=== PATIENT | female | born 1990 | race Caucasian/White ===

== ENCOUNTER 2020-09-18 10:49 | Outpatient (CLI) | payer OTHER, SELFPAY ==
[2020-09-18] VITALS (13 sets, daily range): BP systolic 139–160; BP diastolic 91–100; PULSE 63–74; BMI 29.0
--- NOTE | 2020-09-18 11:20 | OBADM ---
This patient, Tamra Carmona, admitted to the OB room 115 as clinical outpatient for hypertension in . Patient/family oriented to hospital policies and general routines including ID bracelet, bed and alarms, visiting hours, pain management, procedures, bathroom and other care routines, personal items, smoking policy, room service/diet, and visiting hours. Patient/Family are encouraged to report perceived risks to care and to ask questions if they do not understand what they are told or what they should do.
[2020-09-18 11:44] LABS: Basophils Percent Auto 0.4 % (0.2-1.2); Eosinophils Absolute Auto 0.1 K/mm3 (0-0.3); Eosinophils Percent Auto 0.8 % (0-4.4); Hematocrit 38.4 % (37.0-47.0); Hemoglobin 13.2 g/dL (12.0-15.0); Immature Granulocyte Absolute 0.21 K/mm3 (0.00-0.031); Immature Granulocyte Percent A 2.5 % (0-0.5); Mean Corpuscular HGB Conc 34.4 g/dl (32-36); Mean Corpuscular Hemoglobin 32.1 pg (26-34); Mean Corpuscular Volume 93.4 fl (80-100); Monocytes Absolute Auto 0.6 K/mm3 (0.1-0.6); Monocytes Percent Auto 7.1 % (2.6-8.5); Neutrophils Absolute Auto 5.9 K/mm3 (1.3-6.7); Neutrophils Percent Auto 70.2 % (45.5-73.1); Platelet Count Result 188 k/mm3 (150-375); Red Blood Count 4.11 M/mm3 (4.2-5.4); White Blood Count 8.4 K/mm3 (4.5-10.0)
[2020-09-18 11:45] LABS: Add Urine Microscopic? NO; Appearance Urine Clear (Clear); Bilirubin Urine Negative (Negative); Blood Urine Negative (Negative); Color Urine Straw (Yellow); Glucose Urine UA Negative (Negative); Ketones Urine Negative (Negative); Leukocyte Esterase Ur Negative LEU/UL (Negative); Nitrate Urine Negative (Negative); Protein Urine Negative (Negative); Urobilinogen Urine Negative mg/dL (<2.0)
[2020-09-18 11:57] LABS: Alanine Aminotransferase 16 U/L (4-35); Albumin Level 3.9 g/dL (3.5-5.1); Alkaline Phosphatase 122 U/L (38-126); Anion Gap 5 mmol/L (8-16); Aspartate Amino Transferase 25 U/L (14-36); Bilirubin,Total 0.6 mg/dL (0.2-1.3); Blood Urea Nitrogen 9 mg/dL (7-17); Calcium 9.4 mg/dL (8.4-10.2); Carbon Dioxide 25 mmol/L (22-30); Chloride 105 mmol/L (98-107); Estimated Glomerular Filt Rate > 60; Glucose 79 mg/dL (65-105); Potassium 4.1 mmol/L (3.4-5.0); Sodium 135 mmol/L (137-145); Uric Acid 5.6 mg/dL (2.5-7.5)
[2020-09-18 12:00] LABS: Creatinine Urine 14.9 mg/dL; Total Protein Urine Random 16 mg/dL; Ur Ttl Prot Creatinine Ratio 1.07 mg/mg (0-0.20)
[2020-09-18 12:15] LABS: Specific Grav Ur 1.003 (1.001-1.035)
--- NOTE | 2020-09-18 12:25 | PC.NURSE ---
Dr. Guo returned page and informed of this pt who normally sees Dr. Parra with elevated BP's who has been on Labetalol 200 mg PO BID with last dose at 0745 today. Informed of pt's BP's and lab results. 24 hr urine was started. Discussed NST at 33 wks with two 15 beat accels that are more than 20 mins apart- MD MANNING with that. Order received to give another dose of Labetalol 200 mg PO now and continue to monitor BP's for another hour before discharging pt to home.
--- NOTE | 2020-09-18 12:27 | PC.NURSE ---
Baby gave 2nd 15 beat accel just prior to discontinuing NST.
[2020-09-18] MEDS: LABETALOL HCL 100 MG TABLET 200 MG PO (12:42)
--- NOTE | 2020-09-18 13:55 | PC.NURSE ---
Dr. Brant Ramey updated on BP's. OK to send out new prescription for Labetalol as pt doesn't have enough. Pt has an appointment with Dr. aPrra on and checks her BP's at home. Pt to call if BP>160/100. OK to discharge.
== END 2020-09-18 14:18 | disposition home or self-care (01) ==
LOC: ANHOBOP 10:52 → ANHOBPP 10:53
PROVIDERS: Obstetrics & Gynecology; Visit Provider Obstetrics & Gynecology
DX: O13.9 Gestational [pregnancy-induced] hypertension without significant proteinuria, unspecified trimester (principal); Z3A.00 Weeks of gestation of pregnancy not specified
CPT/HCPCS: 36415; 59025; 80053; 81003; 82570; 84156; 84550; 85025; 99199; A9270

== ENCOUNTER 2020-09-19 13:00 | Outpatient (CLI) | payer OTHER, SELFPAY ==
[2020-09-19 13:19] VITALS: BMI 29.0
[2020-09-19 18:09] LABS: Collection Time Urine 24 HOURS
[2020-09-19 18:11] LABS: Patient Weight 174 Lbs; Total Volume 24 Hour Urine 2800 ml
[2020-09-19 18:12] LABS: Specific Gravity Ur 1.015
[2020-09-19 18:27] LABS: Creatinine Clearance Urine 120.8 ml/min (75-125); Creatinine Urine 46.7 mg/dL; Total Protein Urine Random 21 mg/dL
[2020-09-19 19:24] LABS: Total Protein Urine 24 Hr 588 mg/24hr (28-141)
== END 2020-09-19 13:01 | disposition home or self-care (01) ==
LOC: ANHOBOP 13:02
PROVIDERS: Visit Provider Obstetrics & Gynecology
DX: O13.9 Gestational [pregnancy-induced] hypertension without significant proteinuria, unspecified trimester (principal); Z3A.00 Weeks of gestation of pregnancy not specified
CPT/HCPCS: 81050; 82575; 84156

== ENCOUNTER 2020-09-25 13:02 | Outpatient (RCR) | payer OTHER, SELFPAY ==
[2020-09-13 15:29] VITALS: BP 148/93; PULSE 67
--- NOTE | 2020-09-13 16:46 | PC.NURSE ---
Dr. Parra informed by Yoan Gold BPP 10/14 with subjectively normal amniotic fluid. BP's remain 158/107, 155/106, 154/108. MD feels pt's BP's are staying elevated due to anxiety from her being here. Order received to discharge to home with preeclampsia precautions. Pt given handouts with instructions to report any symptoms- verbalizes understanding.
--- NOTE | 2020-09-13 16:47 | PC.NURSE ---
Pt has the ability to monitor her BP's at home and will call MD if they stay elevated once she gets home.
[2020-09-24 15:35] LABS: Hematocrit 39.3 % (37.0-47.0); Hemoglobin 13.6 g/dL (12.0-15.0); Mean Corpuscular HGB Conc 34.6 g/dl (32-36); Mean Corpuscular Hemoglobin 32.5 pg (26-34); Mean Platelet Volume 12.5 fl (7.4-10.4); Platelet Count Result 161 k/mm3 (150-375); Red Blood Count 4.18 M/mm3 (4.2-5.4)
[2020-09-24 15:47] LABS: Alanine Aminotransferase 15 U/L (4-35); Albumin Level 3.8 g/dL (3.5-5.1); Alkaline Phosphatase 139 U/L (38-126); Anion Gap 7 mmol/L (8-16); Aspartate Amino Transferase 23 U/L (14-36); Bilirubin,Total 0.5 mg/dL (0.2-1.3); Blood Urea Nitrogen 9 mg/dL (7-17); Calcium 9.5 mg/dL (8.4-10.2); Carbon Dioxide 24 mmol/L (22-30); Chloride 103 mmol/L (98-107); Estimated Glomerular Filt Rate > 60; Glucose 92 mg/dL (65-110); Potassium 3.8 mmol/L (3.4-5.0); Sodium 134 mmol/L (137-145); Uric Acid 5.1 mg/dL (2.5-7.5)
[2020-09-24 16:47] VITALS: BP 155/106; PULSE 71
--- NOTE | ~2020-09-25 | US_ITS ---
EXAMINATION: US OB BPP wo non-stress DATE: 09/13/2020 16:02 INDICATION: Hypertension in . Third trimester. TECHNIQUE: Real-time pelvic ultrasound was performed. COMPARISON: None. FINDINGS: There is a single living fetus in vertex presentation. The placenta is anterior, 4.2 cm from the cer vix. heart rate is 125 beats per minute (bpm). The amniotic fluid volume is subjectively normal . Biophysical profile performed by the technologist: breathing (30 sec sustained breathing in 30 minutes): 2 out of 2 movement (3 gross body movements in 30 minutes): 2 out of 2 tone (one episode of urmvusj-hkhudpslb-kgkomiw limb movement): 2 out of 2 Amniotic fluid pocket (2 cm): 2 out of 2 Total score: 8 out of 8 IMPRESSION: 1. Single living fetus in vertex presentation. 2. Biophysical profile 8 out of 8. Reviewed, dictated and finalized at location A.
[2020-09-25 14:35] VITALS: BP 146/95; PULSE 83
== END 2020-10-04 08:52 | disposition home or self-care (01) ==
LOC: ANHOBOP 13:02
PROVIDERS: Visit Provider Obstetrics & Gynecology
DX: O16.3 Unspecified maternal hypertension, third trimester (principal); O09.293 Supervision of pregnancy with other poor reproductive or obstetric history, third trimester; Z3A.32 32 weeks gestation of pregnancy; Z3A.33 33 weeks gestation of pregnancy; Z3A.34 34 weeks gestation of pregnancy
CPT/HCPCS: 36415; 59025; 76819; 80053; 84550; 85027

== ENCOUNTER 2020-10-02 13:51 | Inpatient (IN) | payer OTHER, SELFPAY ==
[2020-10-02] VITALS (82 sets, daily range): BP systolic 125–188; BP diastolic 74–138; PULSE 69–99; RESP 16–18; TEMP 36.6–36.8; O2SAT 95–100; BMI 29.2
[2020-10-02 13:25] LABS: Basophils Percent Auto 0.4 % (0.2-1.2); Eosinophils Absolute Auto 0.1 K/mm3 (0-0.3); Eosinophils Percent Auto 0.9 % (0-4.4); Hematocrit 41.4 % (37.0-47.0); Immature Granulocyte Absolute 0.21 K/mm3 (0.00-0.031); Immature Granulocyte Percent A 2.1 % (0-0.5); Lymphocytes Absolute Auto 2.06 K/mm3 (0.9-3.2); Lymphocytes Percent Auto 20.8 % (18.3-44.2); Mean Corpuscular HGB Conc 33.8 g/dl (32-36); Mean Corpuscular Hemoglobin 31.7 pg (26-34); Mean Corpuscular Volume 93.9 fl (80-100); Mean Platelet Volume 12.1 fl (7.4-10.4); Monocytes Absolute Auto 0.6 K/mm3 (0.1-0.6); Monocytes Percent Auto 6.5 % (2.6-8.5); Neutrophils Absolute Auto 6.9 K/mm3 (1.3-6.7); Neutrophils Percent Auto 69.3 % (45.5-73.1); Platelet Count Result 177 k/mm3 (150-375); Red Blood Count 4.41 M/mm3 (4.2-5.4); Red Cell Distribution Width 12.1 % (11.5-14.5); White Blood Count 9.9 K/mm3 (4.5-10.0)
[2020-10-02 13:29] LABS: Add Urine Microscopic? YES; Appearance Urine Cloudy (Clear); Bacteria Urine Trace /hpf; Bilirubin Urine Negative (Negative); Blood Urine Negative (Negative); Color Urine Yellow (Yellow); Glucose Urine UA Negative (Negative); Ketones Urine Trace mg/dL (Negative); Leukocyte Esterase Ur 2+ LEU/UL (NEGATIVE); Mucus Urine Rare /lpf; Nitrate Urine Negative (Negative); Protein Urine 2+ mg/dL (Negative); Specific Grav Ur 1.024 (1.001-1.035); Squamous Epithelial Cell Urine Many /hpf (Few); Urobilinogen Urine Negative mg/dL (<2.0); WBC Urine 21-30 /hpf (0-3)
[2020-10-02 13:31] LABS: Creatinine Urine 205.8 mg/dL; Total Protein Urine Random 65 mg/dL; Ur Ttl Prot Creatinine Ratio 0.32 mg/mg (0-0.20)
[2020-10-02 13:33] LABS: Alanine Aminotransferase 16 U/L (4-35); Albumin Level 3.8 g/dL (3.5-5.1); Alkaline Phosphatase 153 U/L (38-126); Anion Gap 5 mmol/L (8-16); Aspartate Amino Transferase 26 U/L (14-36); Bilirubin,Total 0.6 mg/dL (0.2-1.3); Blood Urea Nitrogen 11 mg/dL (7-17); Calcium 9.6 mg/dL (8.4-10.2); Carbon Dioxide 26 mmol/L (22-30); Chloride 101 mmol/L (98-107); Estimated Glomerular Filt Rate > 60; Glucose 82 mg/dL (65-110); Potassium 4.1 mmol/L (3.4-5.0); Sodium 132 mmol/L (137-145); Uric Acid 5.7 mg/dL (2.5-7.5)
[2020-10-02] MEDS: BETAMETHASONE SOD PHOS/ACETATE 30 MG/5 ML VIAL 12 MG IM (14:16)
--- NOTE | 2020-10-02 14:37 | PM.IMHP ---
H&P: HPI History of Present Illness Date/Time: 10/02/20 14:37 Chief Complaint: GHTN with severe preeclampsia intrauterine at term Narrative: 29 yo at 35w0d who presents with GHTN with superimposed severe preeclampsia. Pt has been complicated by GHTN. Her BP have been increasing despite labetalol and procardia. She states she has had a bothersome DIXON on and off for the past week. She denies any scotoma, RUQ pain, change in LE edema. Review of Systems Cardiovascular: Cardiovascular: Denies chest pain, Denies leg edema, Denies palpitations, Denies dyspnea and Denies dyspnea on exertion Respiratory: Respiratory: Denies cough, Denies dyspnea and Denies dyspnea on exertion Gastrointestinal: Gastrointestinal: Denies abdominal pain, Denies constipation, Denies diarrhea, Denies nausea and Denies vomiting Genitourinary: Genitourinary: Denies hematuria, Denies urinary frequency, Denies dysuria, Denies pelvic pain, Denies urinary incontinence and Denies vaginal discharge Neurologic: Reports system reviewed and no additional complaints, except as documented Psychiatric: Psychiatric: Reports no additional psychiatric complaints Endocrine: Endocrine: Denies palpitations [facility] Family History Family History (Updated 09/03/17 @ 10:05 by DOCTOR UNKNOWN) Mother Hypertension Other Family history of gout Family history of malignant neoplasm Social History Social History Smoking status: Never smoker Alcohol intake: never Meds Home Medications and Allergies Home Medications Medication Instructions Recorded Confirmed Type PNV cmb#95-ferrous fumarate-FA 1 tablet PO DAILY 09/18/20 09/18/20 History [] aspirin 81 mg PO DAILY 09/18/20 09/18/20 History cetirizine [Zyrtec] 10 mg PO DAILY 09/18/20 09/18/20 History labetalol 200 mg PO Q8H #90 tablet 09/18/20 Rx nifedipine [Procardia XL] 30 mg PO DAILY #30 tablet 09/25/20 Rx Allergies Allergy/AdvReac Type Severity Reaction Status Date / Time cefaclor Allergy Unknown Verified 09/03/17 10:05 Vital Signs Vital Signs - 24 hr 10/02/20 13:15 10/02/20 13:30 10/02/20 13:45 Pulse Rate 73 72 75 Blood Pressure 172/116 H 170/113 H 160/112 H 10/02/20 14:08 10/02/20 14:15 Pulse Rate 74 79 Blood Pressure 188/117 H 182/124 H Exam Const: General: no acute distress Eyes: EOM: EOMs intact bilaterally Neck: Neck: supple Thyroid: thyroid normal Chest: Breast/axilla inspection: normal inspection of the breasts Breast/axilla palpation: normal palpation of the breasts, normal palpation of the axillae and no axillary lymphadenopathy Resp: Effort & Inspection: normal respiratory effort Auscultation: clear to auscultation bilaterally Cardio: Rate: regular rate Rhythm: regular rhythm GI: Inspection: non-distended GI Palp: No abdominal tenderness, Yes Soft to palpation, No Tenderness to palpation present (GI) and No Guarding due to palpation present (GI) Auscultation: normal bowel sounds : General: No bladder normal to palpation External Female Exam: normal external appearance Speculum Exam - Vagina: normal vaginal discharge and No vaginal bleeding Speculum Exam - Cervix: nontender Bimanual exam- vagina & uterus: No bladder normal to palpation and No Cervical tenderness present OB/external & speculum: No vaginal bleeding Skin: General skin exam: normal color and no rashes or lesions noted Neuro: Cognition (Neuro): normal cognition Speech: normal speech Extrem: General: normal to inspection Psych: Mental Status: mental status grossly normal Affect: normal affect H&P: Results Labs Labs: Short CBC 10/02/20 Range/Units 13:09 WBC 9.9 (4.5-10.0) K/mm3 Hgb 14.0 (12.0-15.0) g/dL Hct 41.4 (37.0-47.0) % Plt Count 177 (150-375) k/mm3 [facility] 10/02/20 13:09 Sodium 132 L Potassium 4.1 Chloride 101 Carbon Dioxide 26 BUN 11 Creatinine 0.70 Glucose 82 Calcium 9.6 Liver Function
[2020-10-02] MEDS: MAGNESIUM SULF 20GM/WATER500ML 500 ML 50 MG IV CONT ×2 (15:00→22:10)
[2020-10-02] MEDS: MAGNESIUM SULF 6 GM/WATER150ML 6 GM/150 ML BAG IVPB (15:01)
[2020-10-02] MEDS: LACTATED RINGERS 1,000 ML 125 ML IV CONT (15:01)
[2020-10-02] MEDS: DINOPROSTONE 10 MG VAG INSERT VAGINAL (15:52)
--- NOTE | 2020-10-02 16:30 | LDADM ---
This patient, Tamra Carmona, was admitted to Labor/Delivery/Recovery 109 on 10/02/20 at 13:51. Plans for labor, pain management and were discussed with patient. Patient/family oriented to hospital policies and general routines including ID bracelet, bed and alarms, visiting hours, pain management, procedures, bathroom and other care routines, personal items, smoking policy, room service/diet and guest tray routines, infant security routines, and visiting hours. Patient/Family are encouraged to report perceived risks to care and to ask questions if they do not understand what they are told or what they should do. See OBIX for further documentation.
[2020-10-02] MEDS: AMPICILLIN 2 GM/NS 100 ML 2 GM/100 ML BAG IVPB (17:17)
[2020-10-02] MEDS: LABETALOL HCL 100 MG TABLET 200 MG PO (19:57)
[2020-10-02] MEDS: AMPICILLIN 1 GM/NS 50 ML 1 GM/50 ML BAG IVPB (21:06)
[2020-10-02] MEDS: ACETAMINOPHEN 500 MG TABLET 1000 MG PO (22:26)
[2020-10-03] VITALS (157 sets, daily range): BP systolic 100–169; BP diastolic 66–115; PULSE 68–106; RESP 16–18; TEMP 36.3–37; O2SAT 90–100
[2020-10-03] MEDS: AMPICILLIN 1 GM/NS 50 ML 1 GM/50 ML BAG IVPB ×2 (01:07→05:08)
[2020-10-03] MEDS: BETAMETHASONE SOD PHOS/ACETATE 30 MG/5 ML VIAL 12 MG IM (02:26)
[2020-10-03] MEDS: LACTATED RINGERS 1,000 ML 125 ML IV CONT ×2 (04:55→07:09)
--- NOTE | 2020-10-03 05:29 | WPDANESEPP ---
Anes - Eval Pre Procedure Procedure: labor epidural Date/Time: 10/03/20 05:29 Surgeon: Fidel Preop Diagnosis: Abd pain with contractions Pre Op Diagnosis: elev bp Patient Data Age: 29 Gender: F Height: 1.65 m Weight: 79.54 kg Last Vital Signs Temp 97.4 F L 10/03/20 04:54 Pulse 82 10/03/20 05:15 Resp 16 10/03/20 04:54 BP 151/98 H 10/03/20 05:15 Pulse Ox 99 10/03/20 05:25 Allergies Allergy/AdvReac Type Severity Reaction Status Date / Time cefaclor Allergy Unknown Verified 09/03/17 10:05 Home Medications Medication Instructions Recorded Confirmed Type PNV cmb#95-ferrous fumarate-FA 1 tablet PO DAILY 09/18/20 09/18/20 History [] aspirin 81 mg PO DAILY 09/18/20 09/18/20 History cetirizine [Zyrtec] 10 mg PO DAILY 09/18/20 09/18/20 History labetalol 200 mg PO Q8H #90 tablet 09/18/20 Rx nifedipine [Procardia XL] 30 mg PO DAILY #30 tablet 09/25/20 Rx Laboratory Tests 10/02/20 10/02/20 10/02/20 13:09 13:09 13:09 WBC 9.9 K/mm3 K/mm3 (4.5-10.0) RBC 4.41 M/mm3 M/mm3 (4.2-5.4) Hgb 14.0 g/dL g/dL (12.0-15.0) Hct 41.4 % % (37.0-47.0) MCV 93.9 fl fl (80-100) MCH 31.7 pg pg (26-34) MCHC 33.8 g/dl g/dl (32-36) RDW 12.1 % % (11.5-14.5) Plt Count 177 k/mm3 k/mm3 (150-375) MPV 12.1 fl H fl (7.4-10.4) Immature Gran % (Auto) 2.1 % H % (0-0.5) Neut % (Auto) 69.3 % % (45.5-73.1) Lymph % (Auto) 20.8 % % (18.3-44.2) [place] % (Auto) 6.5 % % (2.6-8.5) Eos % (Auto) 0.9 % % (0-4.4) Baso % (Auto) 0.4 % % (0.2-1.2) Lymph # (Auto) 2.06 K/mm3 K/mm3 (0.9-3.2) [place] # (Auto) 0.6 K/mm3 K/mm3 (0.1-0.6) Eos # (Auto) 0.1 K/mm3 K/mm3 (0-0.3) Baso # (Auto) 0.0 K/mm3 K/mm3 (0.0-0.1) Abs Immat Gran (auto) 0.21 K/mm3 H K/mm3 (0.00-0.031) Absolute Neuts (auto) 6.9 K/mm3 H K/mm3 (1.3-6.7) Absolute Nucleated RBC 0.0 K/mm3 K/mm3 (0.0-0.012) Nucleated RBC % 0.0 % % (0.0-0.2) Sodium Potassium Chloride Carbon Dioxide Anion Gap BUN Creatinine Estim Creat Clear Calc Estimated GFR Glucose Uric Acid Calcium Total Bilirubin AST ALT Alkaline Phosphatase Total Protein Albumin Urine Color Yellow (Yellow) Urine Appearance Cloudy H (Clear) Urine pH 6.0 (5.0-9.0) Ur Specific [place] 1.024 (1.001-1.035) Urine Protein 2+ mg/dL H mg/dL (Negative) Urine Glucose (UA) Negative mg/dL mg/dL (Negative) Urine Ketones Trace mg/dL mg/dL (Negative) Ur Blood (Man) Negative (Negative) Urine Nitrate Negative (Negative) Urine Bilirubin Negative (Negative) Urine Urobilinogen Negative mg/dL mg/dL (<2.0) Ur Leukocyte Esterase 2+ OLEG/UL H OLEG/UL (NEGATIVE) Urine RBC 3-5 /hpf H /hpf (0-2) Urine WBC 21-30 /hpf H /hpf (0-3) Ur Squamous Epith Cells Many /hpf H /hpf (Few) Urine Bacteria Trace /hpf /hpf Urine Mucus Rare /lpf /lpf U Random Total Protein 65 mg/dL mg/dL Urine Creatinine 205.8 mg/dL mg/dL Protein/Creat Ratio 2 0.32 mg/mg H mg/mg (0-0.20) RPR Blood Type Antibody Screen 10/02/20 10/02/20 10/02/20 13:09 14:59 14:59 WBC RBC Hgb Hct MCV MCH MCHC RDW Plt Count MPV Immature Gran % (Auto) Neut % (Auto) Lymph % (Auto)
--- NOTE | 2020-10-03 06:09 | PM.OBPNLAB ---
Pain Control Date/time seen: 10/03/20 06:09 Pain control: tolerating well and epidural Pelvic Exam Dilation (cm): 4 Effacement (%): 80 station: -2 Amniotic membrane status: Intact Contractions Monitor mode: External Status status: Category ll Comments: occasional late deceleration, mod variability, occasional acceleration Assessment and Plan Plan: begin patient augmentation Comments: AROM for clear fluid, IUPC placed. will augment with pitocin
[2020-10-03 07:01] LABS: Rapid Plasma Reagin Non-Reactive (NonReactive)
[2020-10-03] MEDS: OXYTOCIN 30 UNITS/NS 500 ML 30 UNITS/500 ML BAG IV CONT (07:09)
[2020-10-03] MEDS: MAGNESIUM SULF 20GM/WATER500ML 500 ML 50 MG IV CONT ×2 (08:07→19:40)
[2020-10-03] MEDS: OXYTOCIN 30 UNITS/NS 500 ML 30 UNITS/500 ML BAG 125 UNITS IV CONT (09:50)
--- NOTE | 2020-10-03 09:53 | PM.OBPRVD ---
OB - Delivery Note Procedure Delivery date: 10/03/20 Procedure: Pt was noted to be complete. FHT had been having early decelerations. Patient positioned in stirrups with the bed broken, dorsal lithotomy. Her perineum was prepped and draped in the usual fashion. Pt pushed over several contractions. FHT were ntoed to decelerate down to 50-60 bpm. FHT would return to baseline after about 40 sections with each contractions. Pt was able to push to +2 station. head was noted to stay at +2 in between contractions. Pt was already receiving supplemental O2 via non-rebreather mask. FHt decelerations were not improving. Pt was then consented for forceps assisted delivery given NRFHT. FHT deceleration was noted to reach down to 30 bpm. The perineal body was normal length. Pelvis felt to be adequate. + 2 station to +3 with maternal effort. Min caput. Sagital suture palpated and found to be direct A-P plane with possibly 5 degrees leftward axis. Phantom application of blades performed prior to placing left hand into vaginal sidewall. Left blade gently inserted along my hand to ensure no vaginal lacerations - advanced along the skull with the axillary prominence in a gentle fashion. In a similar fashion, the right blade was gently placed. Blade placement was then double checked to ensure adequate placement. The forceps shank articulated well in the midline. A fingerbreadth below the suture on either side was noted. With the next contraction, gentle downward pressure was applied in sync with the contraction / pushing effort. Adequate descent was noted. There were a total of 1 pulls, and the forceps were disarticulated as the head delivered. A body cord x 1 was noted and easily reduced. The remainder of the infant was delivered atraumatically. A segment of cord taken for gases and sample collected as above. A first degree midline perineal lac was noted. The placenta delivered spontaneously and found to be intact. Routine repair of the 1nd degree laceration with 3-0 vicryl. All sponge, lap, and needle counts correct x 2. Patient taken out of lithotomy position and tolerated procedure very well. NICU present for delivery. events: Pre-Eclampsia Intrapartal events: Severe Preeclampsia and Deceleration Induction method: per cervidil protocol Delivery augmentation: rupture of membranes and pitocin Delivery monitor: internal FHT and internal uterine Route of delivery: forceps Indication for instrumentation: nonreassuring FHR tracing Episiotomy description: None Laceration Description: Perineal - 1st Degree Delivery repair: vicryl Specimen: No Quantitative Blood Loss (ml): 200 Anesthesia type: Epidural Disposition: floor Complications: No immediate complications Baby Date of : 10/03/20 Time of : 09:07 Weeks of gestation at delivery: 35 Infant gender: Male Weight (pounds): 4 Weight (ounces): 9 presentation: vertex position: Right Occiput Anterior Placenta delivery description: Spontaneous cord vessel description: Around Body x1 score one minute: 3 score five minutes: 8
[2020-10-03] MEDS: ONDANSETRON INJ 4 MG/2 ML VIAL IV PUSH (12:20)
[2020-10-03] MEDS: BENZOCAINE 20% AER SPR (*SP) 56 GM CAN 1 SPRAY TOPICAL (12:20)
[2020-10-03] MEDS: WITCH HAZEL 40 PADS 1 PAD TOPICAL (12:21)
--- NOTE | 2020-10-03 12:25 | OBPPTRN ---
Patient transferred to post room # 277 via wheelchair. Support person present. Oriented to unit, room, information board, rooming in, admission packet and security measures. Patient verbalizes understanding.
--- NOTE | 2020-10-03 14:17 | PC.NURSE ---
Consult with pt., mother reports infant breastfed for first feeding. Mother breastfed first child delivered at 37 weeks. Discussed a infant of 35 weeks may have challenges. Infants born early often have less stamina and may be sleepier, have more difficulties with latch and suck and swallow. The potential problem for infant?s having difficulties establishing are at risk for weight loss, slow weight gain, dehydration, low blood sugar, low body temperature and jaundice. Mother's may have difficulties establishing a good milk supply due to lack of adequate stimulation of supply. Infant is able to freely thrust tongue past gum ridge and flange both lips. Skin is intact on both nipples, no redness and bruising noted. Reviewed feeding cues, frequencies, duration of feedings, feeding elimination flow sheet, and signs of adequate intake. Demonstrated stimulation techniques to wake infant for feeding. Assisted with infant to breast. Reviewed positioning/alignment in cross cradle, holding breast in ?U? hold and guided asymmetrical latch on. Discussed rational for each. able to latch correctly. nursed eagerly with bursts of steady draws and occasional swallowing followed with long pausing. Suggested mother stimulate while feeding to increase stimulate, increase intake and to assist with maintaining deep latch. Reviewed signs of a correct latch, effective nursing and suck swallow ratio. Infant was able to maintain latch without discomfort to mother. Demonstrated how to adjust latch more deeply while feeding. Nipple care reviewed of lanolin after feedings, warm compresses as needed. Discussed effective vs ineffective feeding. Advised mother has long pausing effecting milk transfer. Suggested supplementing after each feeding, with 15mls by paced feeding. Parents are comfortable with feeding plan. Discussed pumping, mother would like to hold off on pumping. while on Magnesium. Instructed mother to call out for RN assistance if she is unable to latch for feeding or she has discomfort with nursing.
--- NOTE | 2020-10-03 18:12 | PC.NURSE ---
1734: Paged Dr. Parra regarding pt's high blood pressure. 1753: Paged Dr. Parra. 1805: Dr. Pond came to check on pt and stated that he is operations administrator tonight for the pt. Report given to him regarding pt's high blood pressures. Orders note. See provider communication note.
[2020-10-03] MEDS: LABETALOL HCL 100 MG TABLET 200 MG PO (18:26)
[2020-10-04] VITALS (10 sets, daily range): BP systolic 136–158; BP diastolic 93–111; PULSE 58–87; RESP 16–18; TEMP 36.3–36.9; O2SAT 98
[2020-10-04] MEDS: LACTATED RINGERS 1,000 ML 125 ML IV CONT (03:13)
[2020-10-04 05:03] LABS: Hemoglobin 13.1 g/dL (12.0-15.0)
[2020-10-04] MEDS: MAGNESIUM SULF 20GM/WATER500ML 500 ML 50 MG IV CONT (05:45)
[2020-10-04] MEDS: WITCH HAZEL 40 PADS 1 PAD TOPICAL (07:04)
[2020-10-04] MEDS: BENZOCAINE 20% AER SPR (*SP) 56 GM CAN 1 SPRAY TOPICAL (07:04)
[2020-10-04] MEDS: IBUPROFEN 600 MG TABLET PO ×2 (09:19→16:55)
[2020-10-04] MEDS: LABETALOL HCL 100 MG TABLET 200 MG PO ×3 (09:20→20:15)
[2020-10-04] MEDS: DOCUSATE SODIUM 100 MG CAPSULE PO ×2 (09:21→16:55)
[2020-10-04] MEDS: MULTIVIT/MIN/PREN/FOL AC/IRON TABLET 1 TAB PO (09:21)
--- NOTE | 2020-10-04 09:50 | PC.NURSE ---
Mother is able to independently latch infant with appropriate positioning/alignment. She denies any nipple discomfort, is feeding as required and waking to feed if needed. is currently meeting outcomes for weight, output, jaundice and feeding frequencies.
--- NOTE | 2020-10-04 12:20 | WPDANLDPN2 ---
Anes-Prog Note L&D Date/Time: 10/04/20 12:20 Comfortable throughout: labor and delivery Neuraxial method: epidural Epidural/Spinal procedure site: clean & non-tender Neuro status: Neuro function grossly intact. Cardiovascular status: normal Respiratory status: normal Airway patency: baseline Mental status: baseline Post-Op hydration status: normal Vital Signs: Last Vital Signs Temp 36.9 C 10/04/20 11:51 Pulse 65 10/04/20 11:51 Resp 16 10/04/20 11:51 BP 136/93 H 10/04/20 11:51 Pulse Ox 98 10/04/20 11:51 Pain score (VAS): 2 I/O: Intake & Output 10/03/20 10/04/20 10/04/20 23:59 07:59 15:59 Intake Total 1200 2900 Output Total 1400 3950 Balance -200 -1050 Post-procedural complaints: none Patient feedback: Patient satisfied with anesthetic care.
--- NOTE | 2020-10-04 17:27 | PM.OBPNVD ---
OB - PN: Subj Subjective Date/time seen: 10/04/20 17:27 Patient reports feels okay denies headaches, vision changes, or moderate bleeding. OB - PN: Obj Data Labs CBC & Chem 7: 10/04/20 03:16 10/02/20 13:09 Labs: Laboratory Results - last 24 hr 10/04/20 03:16 Hgb 13.1 Hct 39.0 OB - PN A/P Assessment and Plan (1) Preeclampsia: Code(s): O14.90 - Unspecified pre-eclampsia, unspecified trimester Status: Acute Assessment and Plan: continue to monitor bps s/p magnesium continue with labetalol for bp control. (2) (normal spontaneous vaginal delivery): Code(s): O80 - Encounter for full-term uncomplicated delivery Status: Acute Assessment and Plan: continue with pp care. Time Spent With Patient Time: Total time spent is greater than 50% in coordination of care (as documented) at patient's floor/unit and/or counseling patient: Exam Narrative: ff below umbilicus
[2020-10-05] VITALS (9 sets, daily range): BP systolic 139–176; BP diastolic 95–111; PULSE 51–96; RESP 16–18; TEMP 36.6–36.8; O2SAT 95–98
[2020-10-05] MEDS: LABETALOL HCL 100 MG TABLET 200 MG PO ×3 (04:17→19:05)
[2020-10-05] MEDS: MULTIVIT/MIN/PREN/FOL AC/IRON TABLET 1 TAB PO (07:07)
[2020-10-05] MEDS: NIFEdipine 30 MG TAB.ER.24 PO ×2 (10:20→21:03)
--- NOTE | 2020-10-05 10:31 | PM.OBPNVD ---
OB - PN: Subj Subjective Date/time seen: 10/05/20 10:31 Patient reports feels okay and denies any headaches or symptoms OB - PN: Obj Data Labs CBC & Chem 7: 10/04/20 03:16 10/02/20 13:09 OB - PN A/P Assessment and Plan (1) (normal spontaneous vaginal delivery): Code(s): O80 - Encounter for full-term uncomplicated delivery Status: Acute Assessment and Plan: doing well with pp care (2) Preeclampsia: Code(s): O14.90 - Unspecified pre-eclampsia, unspecified trimester Status: Acute Assessment and Plan: s/p magnesium no pre eclamptic symptoms however bps elevated restarting procardia 30 xl q day with labetalol.. if improvemwnt in bps will d/c home with repeat bp in 24-48 hours. Time Spent With Patient Time: Total time spent is greater than 50% in coordination of care (as documented) at patient's floor/unit and/or counseling patient: Exam Narrative: ff below umbilicus
[2020-10-06] VITALS (11 sets, daily range): BP systolic 129–155; BP diastolic 90–108; PULSE 69–95; RESP 16–18; TEMP 36.2–36.9; O2SAT 99
[2020-10-06] MEDS: LABETALOL HCL 100 MG TABLET 200 MG PO ×4 (02:53→20:00)
[2020-10-06] MEDS: DOCUSATE SODIUM 100 MG CAPSULE PO (07:28)
[2020-10-06] MEDS: MULTIVIT/MIN/PREN/FOL AC/IRON TABLET 1 TAB PO (07:28)
--- NOTE | 2020-10-06 08:50 | PM.OBPNVD ---
OB - PN: Subj Subjective Date/time seen: 10/06/20 08:50 Patient comments: no complaints and pain well controlled baby status: doing well and nursing well OB - PN: Obj Data Labs CBC & Chem 7: 10/04/20 03:16 10/02/20 13:09 OB - PN A/P Plan day: 2 Plan: routine care Comments: keep observing secondary to increased bp Time Spent With Patient Time: Total time spent is greater than 50% in coordination of care (as documented) at patient's floor/unit and/or counseling patient: Time with patient: 15 - 25 minutes Review of Systems Review of Systems: All systems reviewed & are unremarkable except as noted in HPI and below Exam Const: General: no acute distress Eyes: General: appearance normal, both eyes and all related structures Neck: Neck: supple and no JVD Thyroid: thyroid normal Resp: Effort & Inspection: normal respiratory effort Auscultation: clear to auscultation bilaterally Cardio: Rate: regular rate Rhythm: regular rhythm GI: Inspection: non-distended GI Palp: Yes Soft to palpation, No Tenderness to palpation present (GI) and No Guarding due to palpation present (GI) Auscultation: normal bowel sounds : General: Yes bladder normal to palpation External Female Exam: normal external appearance Speculum Exam - Vagina: normal vaginal discharge and No vaginal bleeding Speculum Exam - Cervix: nontender Bimanual exam- vagina & uterus: bladder normal to palpation and No Cervical tenderness present OB/external & speculum: No vaginal bleeding Skin: General skin exam: no rashes or lesions noted Extrem: General: normal to inspection and no edema Psych: Mental Status: mental status grossly normal Affect: normal affect
[2020-10-06] MEDS: NIFEdipine 30 MG TAB.ER.24 PO ×2 (08:56→16:52)
[2020-10-07 00:35] VITALS: BP 135/97; PULSE 71; RESP 18; TEMP 36.3
[2020-10-07 02:10] VITALS: PULSE 77
[2020-10-07] MEDS: LABETALOL HCL 100 MG TABLET 200 MG PO ×2 (02:10→08:27)
[2020-10-07 04:00] VITALS: BP 132/91; PULSE 74; RESP 16; TEMP 36.3; O2SAT 97
[2020-10-07] MEDS: MULTIVIT/MIN/PREN/FOL AC/IRON TABLET 1 TAB PO (08:25)
[2020-10-07] MEDS: IBUPROFEN 600 MG TABLET PO (08:25)
--- NOTE | 2020-10-07 08:25 | PM.DS ---
DS: Admitting Diagnosis Admitting Diagnosis 35 week IUP with chronic hypertension and superimposed -induced hypertension DS: Summary Hospital Course Hospital Course: the patient was admitted for observation at 35 weeks secondary to elevated blood pressures. Induction of labor was undertaken secondary to elevated blood pressures. She underwent spontaneous vaginal delivery. The baby appeared to be doing well at 35 weeks. Her blood pressure was fairly well controlled on 200 mg labetalol q.i.d. and Procardia XL 30 b.i.d.. She was up, ambulating, generally without complaints. Time Spent with Patient Time attestation: Total time spent providing and/or coordinating discharge services: Exam Const: General: no acute distress Eyes: General: appearance normal, both eyes and all related structures Neck: Neck: supple and no JVD Thyroid: thyroid normal Resp: Effort & Inspection: normal respiratory effort Auscultation: clear to auscultation bilaterally Cardio: Rate: regular rate Rhythm: regular rhythm GI: Inspection: non-distended GI Palp: Yes Soft to palpation, No Tenderness to palpation present (GI) and No Guarding due to palpation present (GI) Auscultation: normal bowel sounds : General: Yes bladder normal to palpation External Female Exam: normal external appearance Speculum Exam - Vagina: normal vaginal discharge and No vaginal bleeding Speculum Exam - Cervix: nontender Bimanual exam- vagina & uterus: bladder normal to palpation and No Cervical tenderness present OB/external & speculum: No vaginal bleeding Skin: General skin exam: no rashes or lesions noted Extrem: General: normal to inspection and no edema Psych: Mental Status: mental status grossly normal Affect: normal affect DS: Data Data Completed and Pending Completed studies during hospitalization: Pending at discharge 10/03/20 09:10 Surgical [PTH] Routine Discharge Plan Discharge Attending physician on discharge: Rufino Pond Discharging Clinician: Matt Mullen Patient Disposition: Home, Self-Care Activity: may shower, no straining and pelvic rest Diet: heart healthy Wound Care Instructions: follow printed instructions Discharge Instructions: Education: Mom and Baby Guide Given to: Mother Follow-Up: Call your delivering provider's office for an appointment to be seen in: 1 Week Mom and baby should come to the [facility] for the follow-up appointment. Appointment Date/Time: Friday, October 09, 2020 at 10:00 am What to expect at your follow-up visit: Blood Pressure Check Physical Assessment Call [phone] if you are unable to keep your appointment time. BREAST CARE: * Wear a snug supportive bra. * For engorgement discomfort: Breast Feeding: * Apply warm moist washcloths * Express milk as needed to relieve engorgement * Wear loose clothing * For sore nipples: * Identify correct latch-on * Apply warm moist washcloths before and after nursing * Air dry nipples after nursing * May apply Lansinoh cream to nipples EPISIOTOMY/PERINEAL CARE: * Until bleeding stops, use your clayton bottle after urinating * Change your pad frequently throughout the day * You may take sitz baths several times a day (fill your bathtub with warm water and soak for 20 minutes.) Do NOT bathe in the water * No tub baths until seen by your physician - You may shower ACTIVITY: * Rest as much as possible. * Do not exercise or lift anything heavier than your baby (such as laundry or other children.) * Avoid stairs or driving as much as possible. * Do not put anything into the vagina. No douching, tampons, or sexual activity until seen by physician. NOTIFY PHYSICIAN IF YOU HAVE ANY QUESTIONS OR IF ANY OF THE FOLLOWING SYMPTOMS OCCUR: * If your vaginal area becomes red, swollen, or more painful than what you have experienced in the
[2020-10-07] MEDS: DOCUSATE SODIUM 100 MG CAPSULE PO (08:26)
[2020-10-07 08:27] VITALS: PULSE 78
--- NOTE | 2020-10-07 08:29 | PM.OBPNVD ---
OB - PN: Subj Subjective Date/time seen: 10/07/20 08:29 Patient comments: no complaints and pain well controlled baby status: doing well OB - PN: Obj Data Labs CBC & Chem 7: 10/04/20 03:16 10/02/20 13:09 OB - PN A/P Plan day: 5 Plan: discharge home and follow up 6 weeks (48 hours) Comments: The patient is continue labetalol 200 q.i.d. and Procardia XL 30 b.i.d.. PIH precautions were reviewed in great detail Time Spent With Patient Time: Total time spent is greater than 50% in coordination of care (as documented) at patient's floor/unit and/or counseling patient: Time with patient: 15 - 25 minutes Review of Systems Review of Systems: All systems reviewed & are unremarkable except as noted in HPI and below Exam Const: General: no acute distress Eyes: General: appearance normal, both eyes and all related structures Neck: Neck: supple and no JVD Thyroid: thyroid normal Resp: Effort & Inspection: normal respiratory effort Auscultation: clear to auscultation bilaterally Cardio: Rate: regular rate Rhythm: regular rhythm GI: Inspection: non-distended GI Palp: Yes Soft to palpation, No Tenderness to palpation present (GI) and No Guarding due to palpation present (GI) Auscultation: normal bowel sounds : General: Yes bladder normal to palpation External Female Exam: normal external appearance Speculum Exam - Vagina: normal vaginal discharge and No vaginal bleeding Speculum Exam - Cervix: nontender Bimanual exam- vagina & uterus: bladder normal to palpation and No Cervical tenderness present OB/external & speculum: No vaginal bleeding Skin: General skin exam: no rashes or lesions noted Extrem: General: normal to inspection and no edema Psych: Mental Status: mental status grossly normal Affect: normal affect
[2020-10-07] MEDS: NIFEdipine 30 MG TAB.ER.24 PO (09:09)
[2020-10-07 10:30] VITALS: BP 126/91; PULSE 78; RESP 16; RESP 18; TEMP 36.5; O2SAT 97
[2020-10-09 09:39] VITALS: BP 144/98; PULSE 85; RESP 16; TEMP 37.1; O2SAT 98
== END 2020-10-07 12:31 | disposition home or self-care (01) | DRG 807 ==
LOC: ANHOBOP 14:56 → ANHOB2 10-07 07:00 → ANHLDR 10-08 13:09 → ANHOB2 10-08 13:09 → ANHOBPP 10-08 13:09
PROVIDERS: Admitting Provider Student in an Organized Health Care Education/Training Program; Visit Provider Obstetrics & Gynecology
DX: O13.4 Gestational [pregnancy-induced] hypertension without significant proteinuria, complicating childbirth (principal); Z37.0 Single live birth; O14.14 Severe pre-eclampsia complicating childbirth; O76 Abnormality in fetal heart rate and rhythm complicating labor and delivery; O69.2XX0 Labor and delivery complicated by other cord entanglement, with compression, not applicable or unspecified; O70.0 First degree perineal laceration during delivery; O99.824 Streptococcus B carrier state complicating childbirth; Z3A.35 35 weeks gestation of pregnancy
CPT/HCPCS: 36415; 80053; 81001; 82570; 84156; 84550; 85014; 85018; 85025; 86592; 86850; 86900; 86901; 88307; 96372; A9270; J0290; J0702; J2405; J2590; J2795; J3475; J7120

== ENCOUNTER 2024-06-30 11:28 | Emergency (ER) | payer BC, SELFPAY ==
--- NOTE | 2024-06-30 11:29 | ED_ITS ---
HPI - Female Genitourinary General Chief complaint: Urogenital-Female Stated complaint: Yeast Infection Time Seen by Provider: 06/30/24 11:29 Source: patient Mode of arrival: ambulatory Limitations: no limitations History of Present Illness HPI Narrative: Tamra is a 33-year-old female patient presenting to the clinic today with complaints of possible yeast infection. She reports she has been having vaginal itching with cottage cheese slightly odorous discharge x1 week. No changes in soaps, lotions, detergents, or shampoos. Denies any new sexual partners. Denies any UTI symptoms. Denies any pelvic pain other than itching/external vaginal irritation Related Data Home Medications ?Medication ?Instructions ?Recorded ?Confirmed ?Last Taken ?Type aspirin 81 mg tablet 81 mg PO DAILY 09/18/20 06/30/24 09/18/20 07:45 History cetirizine 10 mg tablet (Zyrtec) 10 mg PO DAILY 09/18/20 06/30/24 09/18/20 07:45 History losartan 50 mg tablet mg 06/30/24 Unknown History Allergies Allergy/AdvReac Type Severity Reaction Status Date / Time cefaclor Allergy Mild Hives Verified 06/30/24 11:44 Review of Systems Review of Systems: Pertinent positives per HPI. Patient denies any fever, chills, rash, headache, visual changes, dizziness, cough, runny nose, sore throat, shortness of breath, chest pain, palpitations, nausea, vomiting, diarrhea, constipation, abdominal pain, or any urinary issues. PMFSH Past Medical History Medical History and not yet delivered Preeclampsia Family History Family History Mother Hypertension Other Family history of gout Family history of malignant neoplasm Social History Social History Smoking status: Never smoker Second hand tobacco smoke exposure: No Alcohol intake: never Spiritual care concerns: No Comments At the time of my signature, I reviewed and agree with the nursing past medical, surgical, social, and family history. There is no relevant family history pertinent to the patient complaint. Exam Narrative: General: Well-developed, well nourished, in no apparent distress Head: Normocephalic, atraumatic. Cardio: Regular rate and rhythm, s1 and s2 normal, no murmur appreciated. Resp: Clear to auscultation bilaterally, no rhonchi, rales, wheezing or rubs. Abdomen: Soft, pliable, bowel sounds present in all quadrants, non-tender to pal pation, no CVAT tenderness. : Deferred-patient declined Course Course Emergency Course: Portions of this record may have been created with voice recognition software. Level of Care: Express Care Visit Vital Signs Vital signs: Vital Signs Temperature 36.7 C 06/30/24 11:36 Pulse Rate 83 06/30/24 11:36 Respiratory Rate 16 06/30/24 11:36 Blood Pressure 141/88 H 06/30/24 11:36 Pulse Oximetry 100 06/30/24 11:36 Oxygen Delivery Room Air 06/30/24 11:36 Temperature 36.7 C 06/30/24 11:36 Pulse Rate 83 06/30/24 11:36 Respiratory Rate 16 06/30/24 11:36 Blood Pressure 141/88 H 06/30/24 11:36 Pulse Oximetry 100 06/30/24 11:36 Oxygen Delivery Room Air 06/30/24 11:36 Vital signs reviewed MDM - Female Genitourinary MDM Narrative Medical decision making narrative: At the time of visit patient is resting comfortably on the exam table. Patient appears to be nontoxic. Shared decision making: Offered to do pelvic exam verses allowing the patient to self swab for bacterial vaginosis/yeast. Patient discovered that her OBGYN sent in a prescription for fluconazole while she was in the clinic today. Does not wish to have exam or swabs completed at this time. Plan: Patient would like to trial taking the fluconazole prior to having any swabs completed. I suspect patient likely has a vaginal yeast infection. Supportive measures were discussed with the patient and they voiced understanding discharge instructions and agrees to treatment plan. Return precautions reviewed Differential Diagnosis Differential diagnosis: Likely bacterial vaginosis, trichomoniasis, cervicitis, vaginitis and other (Chlamydia, gonorrhea, vaginal yeast infection) Discharge Plan Discharge Clinical Impression: Vaginal yeast infection Patient Disposition: Home Condition: Stable Instructions: Antibiotic Form, Yeast Infection (ED) Additional Instructions: You declined swabs for bacterial vaginosis/yeast in the clinic today Take fluconazole as prescribed by your OBGYN Follow-up with you are OBGYN doctor as discussed Patient Language: Guatemalan Prescriptions: No Action losartan 50 mg tablet nifedipine [Procardia XL] 30 mg tablet extended release 24hr 30 mg PO DAILY Qty: 30 2RF cetirizine [Zyrtec] 10 mg Tablet 10 mg PO DAILY aspirin 81 mg Tablet 81 mg PO DAILY labetalol 200 mg Tablet 200 mg PO Q8H Qty: 90 0RF Follow-up/Referrals: Riaz,GONZALES Leyva [Primary Care Provider] - Time of Disposition: 11:44 Quality NIHSS Nursing Documentation ED NIHSS nursing documentation: reviewed/agree
[2024-06-30 11:36] VITALS: BP 141/88; PULSE 83; RESP 16; TEMP 36.7; O2SAT 100
--- OUTSIDE RECORDS SUMMARY | 2024-06-30 13:03 | XMS_ITS | Data Portability ---
Author Organization TARA LIZETHTri ShahRushford Sanjana Address [address] [facility] [place] [address] Care Team Providers Care Plate Inspector Name Role Phone CHRISTIE NELSON Primary Care Provider Unavailab le Assessment No assessment recorded. Plan of Treatment Reminders Order Date Submit Date Provider Last Modified By Organization Details Last Modified Time Details Appointments ANY 15 2024 01:00P M GABY Cole Not available Not available Not available Lab TSH + free T4, serum 2024 025 [facility], [address], [address], 06/22/2024 11:17:49 lipid panel, serum 2024 025 [facility], [facility] [address], [address], 05/09/2024 09:24:23 CBC w/ auto diff 2024 025 Leo [facility], [facility] [address] [employer] [address], [address], 05/09/2024 09:24:23 CMP, serum or plasma 2024 025 Leo [facility], [address], [address], 05/09/2024 09:24:23 HbA1c (hemoglob in A1c), blood 2024 025 Leo [facility], [address], [address], 05/09/2024 09:24:22 TSH + free T4, serum 2023 024 [facility], [address], [address], 05/21/2023 09:27:42 lipid panel, serum 2023 024 [facility], [address], [address], 05/21/2023 09:27:42 CBC w/ auto diff 2023 024 [email or web address], [address] [address], [place], [address], 06/11/2023 16:48:21 CMP, serum or plasma 2023 024 [email or web address], [address], [address], 06/11/2023 16:48:21 HbA1c (hemoglob in A1c), blood 2023 024 [email or web address], [address], [address], 06/11/2023 16:48:21 Referral None recorded. Procedures None recorded. Surgeries None recorded. Imaging None recorded. Medication Orders losartan 50 mg tablet 2023 024 [email or web address] [id number], [address] [place], [address], 03/24/2024 09:52:45 losartan 25 mg tablet 2023 024 [email or web address] [id number], [address] [place], [address], 08/09/2023 19:15:44 Patient TargetsNo targets recorded. Patient InstructionsNo instructions recorded. Reason for Referral None Reported. Results Created Date Observation Date Name Description Value Unit Range Abnormal Flag Note LastModifiedBy Organization Detail LastModifiedTime Result Notes None recorded. Problems Name Problem SNOMED Code Status Onset Date Resolution Date Notes Provider Name and Address Organization Details Recorded Time Benign essential hypertension 5491931 Active [address] [facility], [place] - [place] 4 10:34:18 Long-term drug therapy Active 2023 GABY Cole Attn: [employer]ty[employer] g,[address] [facility], [place], [address], [facility] - [facility] 4 19:17:02 Low back pain 488041184 Active 2024 GABY Cole Attn: [employer]tyler g[address] [facility], [place], [address], [facility] - [facility] 5 00:34:19 Problem Notes None recorded. Medical Equipment None Reported. Allergies Allergen ID Allergen Name Allergen Category Reaction Reaction Severity Criticality Documentation Date Start Date Code Code System Note Provider Name and Address Organization Details Recorded Time 100703 Ceclor medicatio n Not available Not available Not available 05/19/202328058 5 RxNorm Not Available Not Available Not Available Medications Name Sig Start Date Stop Date Status Note LastModified by Organization Details LastModified Time losartan 50 mg tablet Take 1 tablet every day by oral route for 90 days. active Not Available Not Available No t Available tretinoin 0.025 % topical cream APPLY A PEA SIZED AMOUNT TO FACE ONCE NIGHTLY TO ACNE PRONE AREAS. MOISTURIZ E AFTER 05/18 completed Not Available Not Available Not Available losartan 25 mg tablet TAKE 1 TABLET BY MOUTH EVERY DAY 08/08 completed Not Available Not Available Not Available clindamycin 1.2 % (1 % base)-benzo yl peroxide 5 % topical gel APPLY A PEA SIZED AMOUNT TO ACNE PRONE AREAS OF FACE IN THE MORNING, MOISTURIZ E AFTER 05/18 completed Not Available Not Available Not Available Vitals Date Recorded Heart rate Respiratory rate Body weight Body mass index (BMI) Body height Oxygen saturation Oxygen saturation in Arterial blood by Pulse oximetry Systolic blood pressure Diastolic blood pressure Provider Name and Address Organization Details Last Updated DateTime 4 108 /min 20 /min 65393.0 8 g 24.5 kg/m2 165.1 cm 100 % 100 % 122 mm[Hg] 90 mm[Hg] Sanjay Paulino MA [facility] 4 09:56:11 Date Recorded Systolic blood pressure Diastolic blood pressure Systolic blood pressure Diastolic blood pressure Provider Name and Address Organization Details Last Updated DateTime 05/19/2023 140 mm[Hg] 90 mm[Hg] 140 mm[Hg] 90 mm[Hg] GABY Cole Attn: Accounting ,[address] [place], [address] , [facility] 4 10:23:48 Date Recorded Body height Respiratory rate Body mass index (BMI) Body weight Oxygen saturation Oxygen saturation in Arterial blood by Pulse oximetry Heart rate Systolic blood pressure Diastolic blood pressure Provider Name and Address Organization Details Last Updated DateTime 4 165.1 cm 20 /min 24.7 kg/m2 46841.1 9 g 99 % 99 % 90 /min 132 mm[Hg] 88 mm[Hg] Sanjay Paulino MA [facility] 4 09:54:19 Date Recorded Systolic blood pressure Diastolic blood pressure Provider Name and Address Organization Details Last Updated DateTime 07/23/2023 132 mm[Hg] 90 mm[Hg] GABY Cole Attn: Accounting,[address] [place], [address], [facility] 07/23/2023 10:24:47 Date Recorded Body height Body mass index (BMI) Body weight Respiratory rate Oxygen saturation Oxygen saturation in Arterial blood by Pulse oximetry Heart rate Systolic blood pressure Diastolic blood pressure Provider Name and Address Organization Details Last Updated DateTime 5 165.1 cm 26.1 kg/m2 20433 g 20 /min 100 % 100 % 83 /min 128 mm[Hg] 90 mm[Hg] Sanjay Paulino [place] - [facility] 5 09:55:07 Date Recorded Systolic blood pressure Diastolic blood pressure Systolic blood pressure Diastolic blood pressure Provider Name and Address Organization Details Last Updated DateTime 03/24/2024 130 mm[Hg] 80 mm[Hg] 130 mm[Hg] 80 mm[Hg] GABY Cole Attn: [place], [address] , [facility] 10:19:23 Social History Question Answer Notes LastModified by Organizat ion Details LastModified Time Tobacco Smoking Status Never Smoker Sanjay Paulino MA [facility], [facility] 05/19/2023 09:59:11 Do You Have An Advance Directive? No Information not available 07/22/2023 What Is Your Level Of Alcohol Consumption? Occasional Socially 1-3 Times A Week Information not available 05/19/2023 What Is Your Level Of Caffeine Consumption? Moderate Energy Drinks Information not available 05/19/2023 In The 14 Days Before Symptom Onset, Have You Had Close Contact With A Laboratory-confi rmed COVID-19 While That Case Was Ill? No Information not available 05/19/2023 In The 14 Days Before Symptom Onset, Have You Had Close Contact With A Person Who Is Under Investigation For COVID-19 While That Person Was Ill? No Information not available 05/19/2023 Have You Been To An Area Known To Be High Risk For COVID-19? No Information not available 05/19/2023 What Type Of Diet Are You Following? REGULAR Information not available 05/19/2023 Are There Any Guns Present In Your Home? No Information not available 05/19/2023 What Was The Date Of Your Most Recent Tobacco Screening? 03/24/2024 Information not available 03/24/2024 Do You Use Your Seat Belt Or Car Seat Routinely? Yes Information not available 07/22/2023 Do You Have Smoke And Carbon Monoxide Detectors In Your Home? Yes Information not available 05/19/2023 Do You Use Any Illicit Or Recreational Drugs? No Information not available 05/19/2023 Do You Use Sunscreen Routinely? No Information not available 05/19/2023 Has Tobacco Cessation Counseling Been Provided? Yes Information not available 07/22/2023 On What Date Was Tobacco Cessation Counseling Provided? 03/24/2024 Information not available 03/24/2024 Do You Or Have You Ever Used Any Other Forms Of Tobacco Or Nicotine? No Information not available 03/24/2024 Sex: Female Functional Status Question Answer Note LastModified by Organizat ion Details LastModified Time Are you able to care for yourself? Yes Information not available 05/19/2023 What is your exercise level? Occasional Information not available 05/19/2023 Mental Status None recorded. Family History Relationship Description Onset Age of this Age Resolved Age Notes LastModified by Organization Details LastModified Time Mother Hypertensive disorder [email or web address] Not available 2023 10:35:30 Father Hypertensive disorder [email or web address] Not available 2023 10:35:30 Medical History Condition Response Coronary Artery Disease N Other N High Blood Pressure Y Atrial Fibrillation N Kidney or Bladder Problems N Thyroid Problems N GI Problems N Depression N COPD N Blood Clots N Skin Problems N Anemia N Heart Attack (AK) N Anxiety Disorder N Diabetes N Muscle, Joint, or Bone Problems N Seizures/Epilepsy N Acid Reflux (GERD) N Cancer N Stroke N Asthma N Allergies N High Cholesterol N Hepatitis N Liver Disease N Headaches N Heart Failure N Osteoporosis N Gynecological History Statement/Question Response Frequency of Cycle (Q days) 28 Date of LMP 03/23/2024 Menses Monthly Y Duration of Flow (days) 7 Current Control Method None LMP Definite Obstetrics History GPAL:G 2 P 1 0 0 0 Type Value Multiple Births 0 Full Term 1 Induced 0 Spontaneous 0 Premature 0 Living 0 Ectopics 0 Total 2 Immunizations Vaccine Type Date Status Note Provider Nam e and Address Organization Details Recorded Time Tdap 05/07/2020 completed GABY Cole Attn: Accounting[address] [facility], [place], [address], [facility] 05/19/2023 10:25:14 Past Encounters Encounter ID Performer Location Encounter Start Date Encounter Closed Date Diagnosis/Indication Diagnosis SNOMED-CT Code Diagnosis ICD10 Code Diagnosis Note [id number] GABY Cole [facility] [address] [place] [address] 05/19/2023 09:40:20 05/19/2023 10:34:00 Adult health examination 416164402 Z00.00 new pt exam completed. labs ordered fasting. Cholesterol screening 27 8492456 Z13.220 fasting lipids ordered for baseline evaluation Diabetes m ellitus screening 033666701 Z13.1 annual a1c screening ordered Thyroid di sorder screening 802364121 Z13.29 baseline thyroid panel. Benign ess ential hypertension 7944909 I10 start low dose losartan 25mg daily. f/u in july. [id number] GABY Cole [facility] [address] [place] [address] 07/23/2023 09:43:05 07/23/2023 10:31:43 Benign essential hypertension 0874697 I10 Boost to losartan 50mg daily. f/u 6 month. Long-term drug therapy 082510125 Z79.295 [id number] GABY Cole [facility] [employer] [address] [place] [address] 03/24/2024 09:40:05 03/24/2024 10:59:01 Adult health examination 013010375 Z00.00 Routine annual labs were ordered Cholesterol screening 27 4880305 Z13.220 fasting lipids ordered Diabetes m ellitus screening 188010371 Z13.1 annual a1c screening ordered Thyroid di sorder screening 163392778 Z13.29 Annual thyroid function testing ordered Benign ess ential hypertension 6002860 I10 stable on losartan 50mg daily. Blood pressure 130/80 Low back pain 791625180 M54.50 patient has a P.T. friend that she will consult with on lower back exercises and plan. Health Concerns Section Related Observation LastModified by Organization Detai ls LastModified Time None Recorded Concern Status LastModified by Organization Details LastModified Time None Recorded Advance Directives Directive N: Payers Encounter Date Sequence Insurance Name Policy Number Policy Khalil Covered Member ID Khalil Member ID Guarantor Name 05/19/2023 1 [place] [id number] Fermin Carmona [id number] Tamra Carmona 07/23/2023 1 [place] [id number] Fermin Carmona [id number] Tamra Carmona 07/23/2023 2 [employer] [employer] [place] [employer]ESS [id number] Tamra Carmona [id number] Tamra Carmona 03/24/2024 1 [place] [id number] Fermin Carmona [id number] Tamra Carmona Notes Date Note Type Note Provider Name and Address Organization Details Recorded Time 024 text/ht ml Generic HPI TemplateReported bypatient.Notes:pt would like to discuss blood pressure issues. she was on medication in the past for it and late in a . home readings are mostly highger in 90's on diastolic. GABY Cole Attn: Accounting, [address] [place], [address], [facility] 05/19/2023 11:46:00 024 text/ht ml HypertensionReported bypatient.Notes:pt has been taking losartan 25mg daily. she is still running a bit above goal. she is tolerating medication well. GABY Cole Attn: Accounting, [address] [place], [address], [facility] 08/09/2023 19:17:19 025 text/ht ml Back PainReported bypatient.Location:pain is not radiating Quality:sharp;dull Severity:worsening;moderate (5-7) Duration:chronic Onset/Timing:weeks ago Aggravating Factors:movement/positioning;twisti ng;flexing back;extending back Associated Symptoms:no fever; no weak limbs; no numbness of the legs/feet; no tingling; no incontinenceHypertensionReported bypatient.Notes:pt has been taking losartan 50mg daily. Stable on medication. GABY Cole Attn: Accounting, [address] [place], [address], [facility] 04/10/2024 00:35:06 OBGyn Episode No OBEpisode recorded.
== END 2024-06-30 11:45 | disposition home or self-care (01) ==
PROVIDERS: Emergency Provider Nurse Practitioner Family; PCP Physician Assistant
DX: B37.31 Acute candidiasis of vulva and vagina (principal); Z79.82 Long term (current) use of aspirin
CPT/HCPCS: 99211; G0463